=== PATIENT | female | born 2000 | race Caucasian/White ===

== ENCOUNTER 2022-11-07 19:18 | Outpatient (CLI) | payer BC, SELFPAY | END 2022-11-07 19:19 | disposition home or self-care (01) | LOC: AMB 11-12 10:39 | PROVIDERS: Visit Provider Emergency Medicine | DX: R07.89 Other chest pain (principal) ==

== ENCOUNTER 2024-08-30 13:11 | Emergency (ER) | payer BC, SELFPAY ==
[2024-08-30] VITALS (25 sets, daily range): BP systolic 142–163; BP diastolic 82–100; PULSE 44–62; RESP 16–22; TEMP 36.3; O2SAT 93–99; BMI 33.4
--- NOTE | 2024-08-30 13:26 | ED.GENADULT ---
HPI - General Adult General Chief complaint: Nausea/Vomiting Stated complaint: nausea Time Seen by Provider: 08/30/24 13:13 History of Present Illness HPI narrative: Arrives with complaints of N /V that started Tuesday and has been intermittent since. has a history of cyclic vomiting . Denies pain, denies substance use, awake but frequent moaning and keeping eyes closed during triage, somewhat pale and diaphoretic , VSS, ABCs intact. 24-year-old woman presenting to the emergency depart with concern of nausea and vomiting. Began about 36 hours ago and then seemed to settle down little bit and now back. Had tried Zofran which is available at home and has not seem to be effective. Has not had fever. Does have some abdominal pain as well but primary complaint appears to be nausea. It has been some years since had a flare of known cyclic vomiting. This appears similar but again has been sometime since occurred. Did have a THC edible 3 days ago but normally does not take THC product/marijuana. No other substances noted. Denies hematochezia. No diarrhea. Here with fiancee. Related Data Home Medications ?Medication ?Instructions ?Recorded ?Confirmed dextroamphetamine-amphetamine ER 1 cap PO QAM 08/30/24 08/30/24 15 mg 24hr capsule,extend release famotidine 20 mg tablet 20 mg PO BID 08/30/24 08/30/24 loperamide 2 mg capsule mg PO 08/30/24 nicotine 7 mg/24 hr daily 1 patch transdermal DAILY 08/30/24 08/30/24 transdermal patch Previous Rx's ?Medication ?Instructions ?Recorded albuterol sulfate 90 mcg/actuation 2 puff inhalation Q4-6H PRN 11/08/22 aerosol inhaler shortness of breath or wheezing #8.5 grams promethazine 25 mg tablet 25 mg PO Q6H PRN nausea and 08/30/24 vomiting #15 tabs Allergies Allergy/AdvReac Type Severity Reaction Status Date / Time No Known Drug Allergies Allergy Verified 08/30/24 13:17 Review of Systems Status of ROS: Reports: 6 or more systems reviewed and unremarkable except as noted in History and below PFSH PFSH Social History Non-prescribed substance use: denies use Exam Narrative: Exam Narrative: Seems quite uncomfortable. Restless. Has an emesis bag with vomitus in it. Breathing heavily/labored and mildly tachypneic. Lungs are clear. Heart in regular rate and rhythm. Abdomen is soft and diffusely mildly tender. No right upper quadrant pain. No peritoneal signs. Skin is warm dry. She is well-perfused peripherally without edema. Const: Vital Signs, click to edit/add: Vital Signs - 24 hr 08/30/24 13:19 08/30/24 14:18 08/30/24 14:30 Temperature 97.3 F L Pulse Rate 46 L 48 L Pulse Rate [Pulse Oximeter] 62 Respiratory Rate 22 Blood Pressure Blood Pressure [Ri ght Upper Arm] 163/91 H Pulse Oximetry 96 93 95 Oxygen Delivery Me thod Room Air 08/30/24 14:32 08/30/24 14:33 08/30/24 14:45 Temperature Pulse Rate 47 L 49 L 44 L Pulse Rate [Pulse Oximeter] Respiratory Rate Blood Pressure 142/97 H Blood Pressure [Ri ght Upper Arm] Pulse Oximetry 98 96 98 Oxygen Delivery Me thod 08/30/24 15:00 08/30/24 15:03 08/30/24 15:15 Temperature Pulse Rate 48 L 51 L 54 L Pulse Rate [Pulse Oximeter] Respiratory Rate Blood Pressure 143/88 H Blood Pressure [Ri ght Upper Arm] Pulse Oximetry 98 99 97 Oxygen Delivery Me thod 08/30/24 15:30 08/30/24 15:32 08/30/24 15:45 Temperature Pulse Rate 53 L 54 L 55 L Pulse Rate [Pulse Oximeter] Respiratory Rate Blood Pressure 152/90 H Blood Pressure [Ri ght Upper Arm] Pulse Oximetry 97 98 99 Oxygen Delivery Me thod 08/30/24 16:00 08/30/24 16:02 08/30/24 16:03 Temperature Pulse Rate 53 L 55 L 57 L Pulse Rate [Pulse Oximeter] Respiratory Rate 16 Blood Pressure 156/100 H Blood Pressure [Ri ght Upper Arm] Pulse Oximetry 99 97 98 Oxygen Delivery Me thod 08/30/24 16:15 08/30/24 16:30 08/30/24 16:32 Temperature Pulse Rate 58 L 59 L 58 L Pulse Rate [Pulse Oximeter] Respiratory Rate Blood Pressure 147/95 H Blood Pressure [Ri ght Upper Arm] Pulse Oximetry 98 97 97 Oxygen Delivery Me thod Documenting provider has reviewed patient's vital signs: yes Course Vital Signs Vital signs: Initial Vital Signs Temperature 97.3 F L 08/30/24 13:19 Temperature Source Temporal Artery Scan 08/30/24 13:19 Pulse Rate 62 08/30/24 13:19 Respiratory Rate 22 08/30/24 13:19 Blood Pressure 163/91 H 08/30/24 13:19 Blood Pressure Mean 115 H 08/30/24 13:19 Pulse Oximetry 96 08/30/24 13:19 Oxygen Delivery Method Room Air 08/30/24 13:19 Vital Signs Temperature 97.3 F L 08/30/24 13:19 Pulse Rate 62 08/30/24 13:19 Respiratory Rate 22 08/30/24 13:19 Blood Pressure 163/91 H 08/30/24 13:19 Pulse Oximetry 96 08/30/24 13:19 Oxygen Delivery Method Room Air 08/30/24 13:19 Temperature 97.3 F L 08/30/24 13:19 Pulse Rate 58 L 08/30/24 16:32 Respiratory Rate 16 08/30/24 16:02 Blood Pressure 147/95 H 08/30/24 16:32 Pulse Oximetry 97 08/30/24 16:32 Oxygen Delivery Method Room Air 08/30/24 13:19 Medications Administered Medications: Discontinued Medications Generic Name Dose Route Start Last Admin Trade Name Husam PRN Reason Stop Dose Admin Diazepam 5 mg 08/30/24 15:49 08/30/24 15:57 Diazepam 5 Mg/Ml Inj IV 08/30/24 15:50 5 mg ONCE ONE Administration Diphenhydramine HCl 25 mg 08/30/24 13:36 08/30/24 14:06 Diphenhydramine 50 Mg/Ml Inj IVP 08/30/24 13:37 25 mg ONCE ONE Administration Droperidol 2.5 mg 08/30/24 13:36 08/30/24 14:08 Droperidol 2.5 Mg/Ml Inj IV 08/30/24 13:37 2.5 mg ONCE ONE Administration Sodium Chloride 1,000 mls @ 1,000 mls/hr 08/30/24 13:36 08/30/24 15:07 0.9 % Sodium Chloride 1000 Ml IV 08/30/24 14:35 Infused .Q1H ONE Infusion Lactated Ringer's 1,000 mls @ 1,000 mls/hr 08/30/24 14:39 08/30/24 16:14 Lactated Ringers 1000 Ml IV 08/30/24 15:38 Infused .Q1H ONE Infusion Promethazine HCl 12.5 mg 08/30/24 14:59 08/30/24 15:02 Promethazine 25 Mg/Ml Inj IVP 08/30/24 15:00 12.5 mg ONCE ONE Administration Medical Decision Making MDM Narrative Medical decision making narrative: Will check labs for other concerning findings or reasons to prompt further evaluation. I overall reassured by her abdominal exam. These are familiar symptoms and will be pursuing this as cyclic vomiting initially. Discussed options for treatment and she does note that has had droperidol before. Sounds like this may have been affective. Will give this along with diphenhydramine and normal saline. On reassessment is much less restless or agitated. Is resting with her eyes closed. Does not report that she is feeling much better, still quite nauseated, though definitely looks improved. Initial labs back with white count little over 16,000 and hemoglobin over 16 as well. Suspect this is somewhat contraction in setting of dehydration. Chemistries are still pending will order another L of fluids. Lower CO2 of 17 I think is not inconsistent with the hyperventilating present on arrival. Appears to be resting when I go in the room and then begins to be ?urpy. Ordered for Valium and hoping for oral challenge. Unfortunately now quite sleepy so pending challenge. On reassessment has been managing sips of water (declined juice) but still with nausea. Did discuss potentially next step in treatment might be ketamine infusion. I think though at this point would try to return home and rest. Has received 2 L of fluid. Surely reasonably hydrated at this point. Would send with alternate antiemetic in the form of promethazine. See patient discharge plan for further discussion Focus on hydration. Slow advance of diet over the next 24-36 hours. Diluted juices, soup broth, crackers, toast, rice. Am sending in a prescription of promethazine for alternate anti nausea medicine for you. Return for marked increase in abdominal pain, intractable vomiting, associated fever. Lab Data Lab results reviewed: Yes I reviewed the patient's lab results Labs: Lab Results 08/30/24 Range/Units 14:05 WBC 16.37 H (4.50-11.00) K/uL RBC 5.31 H (4.00-5.20) m/uL Hgb 16.5 H (12.0-16.0) gm/dL Hct 47.1 (33.0-51.0) % MCV 89 (80-100) fL MCH 31 (26-34) pg MCHC 35 (32-36) gm/dL RDW Coeff of Tres 13.0 (11.5-15.5) % Plt Count 400 (140-440) K/uL Neut % (Auto) 85.0 H (42.0-72.0) % Lymph % (Auto) 9.4 L (20-44) % [place] % (Auto) 4.6 (0.0-11.0) % Eos % (Auto) 0.3 (0.0-7.0) % Baso % (Auto) 0.5 (0.0-3.0) % Neut # (Auto) 13.90 H (1.7-7.0) K/uL Lymph # (Auto) 1.50 (0.90-2.90) K/uL [place] # (Auto) 0.80 (0.00-0.90) K/UL Eos # (Auto) 0.00 (0.00-0.50) K/uL Baso # (Auto) 0.10 (0.00-0.30) K/uL Abs Immat Gran (auto) 0.00 (0.00-0.30) K/uL Imm/Tot Granulo (auto) 0.2 % Sodium 138 (135-149) mmol/L Potassium 3.6 (3.6-5.1) mmol/L Chloride 104 (96-114) mmol/L Carbon Dioxide 17 L (20-32) mmol/L Anion Gap 17 H (7-15) mEq/L BUN 16 (5-24) mg/dL Creatinine 0.9 (0.5-1.5) mg/dL Estimated Creat Clear 92.92 Estimated GFR 91 ml/min Glucose 122 H (60-115) mg/dL Calcium 10.1 (8.4-10.6) mg/dL Total Bilirubin 2.1 H (0.1-1.5) mg/dL Direct Bilirubin 0.0 (0.0-0.5) mg/dL AST 36 H (12-35) U/L ALT 27 (4-35) U/L Alkaline Phosphatase 78 (40-150) U/L C-Reactive Protein 0.9 (0.5-1.0) mg/dL Total Protein 8.7 H (6.0-8.3) g/dL Albumin 5.2 H (3.3-5.0) g/dL Discharge Plan Discharge Clinical Impression: Vomiting, Dehydration Patient Disposition: Home w/ Parent or Adult Condition: Improved Additional Instructions: Focus on hydration. Slow advance of diet over the next 24-36 hours. Diluted juices, soup broth, crackers, toast, rice. Am sending in a prescription of promethazine for alternate anti nausea medicine for you. Return for marked increase in abdominal pain, intractable vomiting, associated fever. Prescriptions: New promethazine 25 mg tablet 25 mg PO Q6H PRN (Reason: nausea and vomiting) Qty: 15 0RF No Action albuterol sulfate 90 mcg/actuation HFA aerosol inhaler 2 puff inhalation Q4-6H PRN (Reason: shortness of breath or wheezing) Qty: 8.5 0RF loperamide 2 mg capsule PO famotidine 20 mg tablet 20 mg PO BID nicotine 7 mg/24 hr patch 24 hour 1 patch transdermal DAILY dextroamphetamine-amphetamine 15 mg capsule,extended release 24hr 1 cap PO QAM Follow Up/Referrals: Provider,Not a Local [Primary Care Provider, Family Practice] Stand Alone Forms: [employer] Properti[employer] Info Instructions
[2024-08-30 14:32] LABS: Hematocrit* 47.1 % (33.0-51.0); Hemoglobin* 16.5 gm/dL (12.0-16.0); Immature Granulocytes Pct Auto 0.2 %; Mean Corpuscular HGB Conc 35 gm/dL (32-36); Mean Corpuscular Hemoglobin 31 pg (26-34); Mean Corpuscular Volume 89 fL (80-100); RDW Coefficient of Variation % 13.0 % (11.5-15.5); Red Blood Count* 5.31 m/uL (4.00-5.20); White Blood Count* 16.37 K/uL (4.50-11.00)
[2024-08-30 14:34] LABS: Immature Granulocytes Abs Auto 0.00 K/uL (0.00-0.30); Lymphocytes Absolute Auto 1.50 K/uL (0.90-2.90); Slide Review Reflex No
[2024-08-30 14:54] LABS: Albumin* 5.2 g/dL (3.3-5.0); Chloride* 104 mmol/L (96-114); Potassium* 3.6 mmol/L (3.6-5.1); Sodium* 138 mmol/L (135-149)
[2024-08-30 14:57] LABS: Alanine Aminotransferase* 27 U/L (4-35); Alkaline Phosphatase* 78 U/L (40-150); Anion Gap 17 mEq/L (7-15); Aspartate Amino Transferase* 36 U/L (12-35); Bilirubin Direct* 0.0 mg/dL (0.0-0.5); Bilirubin Total* 2.1 mg/dL (0.1-1.5); Blood Urea Nitrogen* 16 mg/dL (5-24); Calcium* 10.1 mg/dL (8.4-10.6); Carbon Dioxide* 17 mmol/L (20-32); Creatinine* 0.9 mg/dL (0.5-1.5); Est. Creatinine Clearance* 92.92; Estimated Glomerular Filt Rate 91 ml/min; Glucose* 122 mg/dL (60-115); Total Protein* 8.7 g/dL (6.0-8.3)
[2024-08-30] MEDS: LACTATED RINGERS 1000 ML 1,000 ML IV (15:07)
[2024-08-30] MEDS: diazePAM 5 MG/ML inj IV (15:57)
== END 2024-08-30 17:41 | disposition home or self-care (01) ==
PROVIDERS: Emergency Provider Family Medicine
DX: R11.2 Nausea with vomiting, unspecified (principal); E86.0 Dehydration
CPT/HCPCS: 36415; 80048; 80076; 85025; 86140; 96374; 96375; 99283; 99284; J1200; J1790; J2550; J3360; J7030; J7120